=== PATIENT | male | born 1995 | race African-American/Black ===

== ENCOUNTER 2017-07-26 13:37 | Emergency (ER) | payer MEDICAID ==
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
[2017-07-26 14:35] LABS: APPEARANCE,URINE CLEAR; BILIRUBIN,URINE NEGATIVE (NEGATIVE); GLUCOSE, URINE NEGATIVE (NEGATIVE); KETONES,URINE NEGATIVE (NEGATIVE); LEUKOCYTE ESTERASE,URINE NEGATIVE (NEGATIVE); NITRITE,URINE NEGATIVE (NEGATIVE); PROTEIN,URINE NEGATIVE (NEGATIVE); URINE SPECIFIC GRAVITY 1.015
[2017-07-26 14:42] LABS: ABSOLUTE LYMPHOCYTES (AUTO) 1.6 10^3/uL (0.5-4.7); ABSOLUTE MONOCYTES (AUTO) 0.9 10^3/uL (0.1-1.4); ABSOLUTE NEUT (AUTO) 4.4 10^3/uL (1.7-8.2); BASOPHILS % (AUTO) 0.5 % (0-2); EOSINOPHILS % (AUTO) 0.2 % (0-6); HEMATOCRIT 37.3 % (37.9-51.0); HEMOGLOBIN 12.8 g/dL (13.5-17.0); HGB HCT DIFFERENCE 1.1; LYMPHOCYTES % (AUTO) 22.9 % (13-45); MEAN CORPUSCULAR HEMOGLOBIN 29.2 pg (27.0-33.4); MEAN CORPUSCULAR HGB CONC 34.3 g/dL (32.0-36.0); MEAN CORPUSCULAR VOLUME 85 fl (80-97); MONOCYTES % (AUTO) 12.6 % (3-13); RED BLOOD COUNT 4.38 10^6/uL (4.35-5.55); RED CELL DISTRIBUTION WIDTH 14.7 % (11.5-14.0); SEGMENTED NEUTROPHILS % (AUTO) 63.8 % (42-78); WHITE BLOOD COUNT 6.9 10^3/uL (4.0-10.5)
[2017-07-26 14:58] LABS: URINE BARBITURATES SCREEN NEGATIVE; URINE METHADONE SCREEN NEGATIVE; URINE OPIATES LOW NEGATIVE; URINE PHENCYCLIDINE SCREEN NEGATIVE
[2017-07-26 15:00] LABS: ALANINE AMINOTRANSFERASE 29 U/L (21-72); ALBUMIN 4.7 g/dL (3.5-5.0); ALKALINE PHOSPHATASE 62 U/L (38-126); ANION GAP 12 (5-19); ASPARTATE AMINO TRANSFERASE 36 U/L (17-59); BILIRUBIN,DIRECT 0.3 mg/dL (0.0-0.4); BILIRUBIN,TOTAL 0.6 mg/dL (0.2-1.3); BLOOD UREA NITROGEN 16 mg/dL (7-20); CALCIUM 10.4 mg/dL (8.4-10.2); CARBON DIOXIDE 29 mmol/L (22-30); CHLORIDE 103 mmol/L (98-107); CREATININE RESULT 0.78 mg/dL (0.52-1.25); GLUCOSE 80 mg/dL (75-110); POTASSIUM 4.3 mmol/L (3.6-5.0); SODIUM 143.6 mmol/L (137-145); TOTAL PROTEIN 8.2 g/dL (6.3-8.2)
[2017-07-26 15:07] LABS: ALCOHOL < 10 mg/dL (NONE DETECTED)
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
--- NOTE | 2017-07-26 17:00 | EKG REPORT ---
SEVERITY:- NORMAL ECG - SINUS RHYTHM : Confirmed by: Dominguez Fernández MD 26-Jul-2017 16:59:50
[2017-07-26] MEDS: OLANZAPINE 5 MG TABLET PO SCH (17:30)
[2017-07-26] MEDS: BENZTROPINE MESYLATE 1 MG TABLET PO SCH (17:52)
--- NOTE | 2017-07-27 09:32 | ER Document Report ---
Doctor's Note Notes: 07/27/17 09:31 This is a 21-year-old man with a psychiatric history who was brought into the emergency room for paranoid delusions and bizarre behavior. The patient was held overnight on involuntary commitment for psychiatric evaluation. The patient would like to go home currently, his vital signs are stable. His labs are stable as well. Patient has been evaluated by psychiatry and had discussions with the patient's and (who the patient lives with). The patient currently denies suicidal ideation and has an appointment with psychiatry in 2 days. the patient will be discharged in the care of his aunt who is okay with this plan. 07/27/17 11:06
[2017-07-27] MEDS: OLANZAPINE 5 MG TABLET PO SCH (10:40)
[2017-07-27] MEDS: BENZTROPINE MESYLATE 1 MG TABLET PO SCH (10:40)
[2017-07-27 11:44] VITALS: BP 138/80
== END 2017-07-27 11:46 | disposition home or self-care (01) ==
LOC: ER 13:37
DX: F22 Delusional disorders (principal); F17.200 Nicotine dependence, unspecified, uncomplicated
CPT/HCPCS: 93005; 99285; 36415; 80307 ×4; 85025; 80053; 81001; 93010; J3490 ×4